=== PATIENT | male | born 1995 | race Caucasian/White ===

== ENCOUNTER 2019-06-25 18:06 | Emergency (ER) | payer SELFPAY ==
[~2019-06-25] VITALS: Ht 182.9 cm; Wt 86.2 kg
--- NOTE | 2019-06-25 18:19 | NUR ---
patient [id number] and [employer] from home, binged drinking x 3 days, admits on taling drugs per EMS. On room air, breathing evenly and unlabored. Connected to the monitor and pulse ox. Will continue to monitor accordingly. [employer] at bedside.
--- NOTE | 2019-06-25 18:20 | NUR ---
urine collected and sent to lab.
[2019-06-25 18:37] LABS: APPEARANCE,URINE Clear (CLEAR); BILIRUBIN,URINE Negative (NEGATIVE); BLOOD, URINE Negative Ery/uL (NEGATIVE); COLOR,URINE Yellow (YELLOW); KETONES,URINE 40 (NEGATIVE); LEUKOCYTE ESTERASE ,URINE Negative (NEGATIVE); NITRITE, URINE Negative (NEGATIVE); PH,URINE 6.5 (5.0-8.0); PROTEIN,URINE Negative (NEGATIVE); UGLUCOSE Negative (NEGATIVE); UROBILINOGEN,URINE 0.2 EU/dL (0.2)
[2019-06-25 18:46] LABS: BASOPHILS % (AUTO) 0.5 % (0.0-2.0); EOSINOPHILS % (AUTO) 0.2 % (0.0-6.0); HEMATOCRIT 43 % (39-51); HEMOGLOBIN 15.1 g/dL (13.5-17.5); LYMPHOCYTES # (AUTO) 1.5 /CMM (0.8-4.8); LYMPHOCYTES % (AUTO) 15.3 % (20.0-44.0); MEAN CORPUSCULAR HGB CONC 35 g/dl (31.0-36.0); MEAN CORPUSCULAR VOLUME 94 fL (80-96); MONOCYTES # (AUTO) 0.5 /CMM (0.1-1.30); MONOCYTES % (AUTO) 5.1 % (2.0-12.0); NEUTROPHILS # (AUTO) 7.9 /CMM (1.8-8.9); NEUTROPHILS % (AUTO) 78.9 % (43.0-81.0); PLATELET COUNT (AUTO) 231 /CMM (150-450)
[2019-06-25] MEDS ORDERED: LORAZEPAM 1 MG TABLET ONE (18:49)
[2019-06-25] MEDS ORDERED: OLANZAPINE 5 MG TABLET ONE (18:50)
[2019-06-25 18:57] LABS: BACTERIA,URINE Few /HPF (None Seen); RBC,URINE 0-2 /HPF (0-2); SQUAMOUS EPITHELIAL CELL,UR Few /HPF (None Seen); WBC,URINE 0-2 /HPF (0-3)
[2019-06-25 18:58] LABS: CALCIUM, SERUM 9.5 mg/dL (8.5-10.1)
--- NOTE | 2019-06-25 18:59 | NUR ---
patient refused ativan and zyprexa PO, informed Eder Cosme NP and made aware. Addendum: 06/26/19 at 1128 by ELYSSA ATIVAN AND ZYPREZA RETURNED TO [facility] WITH RECEIPT INSIDE THE BAG.
[2019-06-25] MEDS ORDERED: OLANZAPINE 5 MG TABLET PO ONE (19:00)
[2019-06-25] MEDS ORDERED: LORAZEPAM 1 MG TABLET PO ONE (19:00)
[2019-06-25 19:03] LABS: ALBUMIN 4.7 g/dL (3.4-5.0); BILIRUBIN,DIRECT 0.1 mg/dL (0.0-0.2); BILIRUBIN,TOTAL 0.4 mg/dL (0.2-1.0); TOTAL PROTEIN, SERUM 8.7 g/dL (6.4-8.2)
[2019-06-25 19:05] LABS: SALICYLATE 1.8 mg/dL (2.8-20.0)
[2019-06-25] MEDS ORDERED: POTASSIUM CHLORIDE 20 MEQ TAB.PRT.SR PO ONE (19:30)
--- NOTE | 2019-06-25 19:30 | NUR ---
Report given to Sherif CLAYTON for dewey.
[2019-06-25] MEDS ORDERED: diphenhydrAMINE HCL 50 MG/ML VIAL ONE (21:38)
[2019-06-25] MEDS ORDERED: HALOPERIDOL LACTATE INJ 5 MG/ML VIAL ONE (21:39)
[2019-06-25] MEDS ORDERED: LORAZEPAM INJ 2 MG/ML VIAL ONE (21:39)
[2019-06-25] MEDS ORDERED: LORAZEPAM INJ 2 MG/ML VIAL IM ONE (22:00)
[2019-06-25] MEDS ORDERED: HALOPERIDOL LACTATE INJ 5 MG/ML VIAL IM ONE (22:00)
[2019-06-25] MEDS ORDERED: diphenhydrAMINE HCL 50 MG/ML VIAL IM ONE (22:00)
--- NOTE | 2019-06-26 08:37 | NUR ---
PATIENT RE-EVALUATED,DENIES SI/HI, DR BIGGS INFORMED. PATIENT WANTS TO GO HOME.
--- NOTE | 2019-06-26 08:40 | NUR ---
OFFERED FOOD REFUSED, "I JUST WANT WATER" PER PATIENT HE WILL UBER HOME.
--- NOTE | 2019-06-26 08:44 | NUR ---
Patient a/ox4, denies pain or discomfort at this time. Ambulatory with steady gait. Patient discharged to home in stable condition. Written and verbal after care instructions given. Patient verbalizes understanding of instruction. Prescription provided for potassium.
[2019-06-26 08:58] VITALS: BP 127/86
== END 2019-06-26 09:04 | disposition home or self-care (01) ==
LOC: ER 18:09
DX: F29 Unspecified psychosis not due to a substance or known physiological condition (principal); F10.10 Alcohol abuse, uncomplicated; F12.10 Cannabis abuse, uncomplicated; E87.6 Hypokalemia; J45.909 Unspecified asthma, uncomplicated; F41.9 Anxiety disorder, unspecified; Y90.2 Blood alcohol level of 40-59 mg/100 ml
CPT/HCPCS: 36415; 80048; 80076; 80305; 80307; 80329; 81001; 83735; 85025; 96372 ×3; 99284; G0480; J1200; J1630; J2060; 81000-TC